=== PATIENT | male | born 1960 | race Caucasian/White ===

== ENCOUNTER 2016-09-02 08:55 | Inpatient (IN) | payer BC, OTHER ==
[~2016-09-02] VITALS: Ht 180.3 cm; Wt 119.4 kg
[~2016-09-02 08:55] MED LIST: ADVIL200 MG PO; ALEVE220 M2 PO; ALEVE220 MG PO; ANTI-DIARRHEA2 MG PO; ASPERDRINK81 MG PO; CLEOCIN300 MG PO; COLO-40 MC; COMPAZINE10 MG PO; DOXYCYCLINE HY100 MG PO; FENTANYL1 EAC5 TD; FOLIC ACID1 MG PO; HYDROCODON-ACE1 EAC7 PO; IMODIUM MS REL1 EACH PO; IMURAN50 MG PO; INDOCIN50 MG PO; MEDROL DOSEPAK4 MG PO; MULTIVITAMIN1 EAC2 PO; NOHOMEMEDS; NORCO 5/3251 TABLET PO; PERCOCET 5/31 TABLET PO; PREDNISONE20 MG PO; PREDNISONE5 MG PO; TYLENOL EXTRA500 MG PO; VITAMIN B122500 MCG PO; ZANTAC150 MG PO; ZANTAC75 M1 PO; ZOFRAN8 MG PO
[2016-09-02 15:34] VITALS: BP 171/106
[2016-09-02] MEDS ORDERED: SILVADENE20 GM TP (17:46)
[2016-09-02 18:26] LABS: HEMATOCRIT 26.7 % (38.0-50.0); MCH 31.6 PG (29.0-34.0); MCHC 35.6 G/DL (30.0-36.0); MCV 88.7 FL (86-99); RBC DIS.WIDTH-CV 14.5 % (11.8-14.6); RBC DIS.WIDTH-SD 45.2 % (39-53); RED BLOOD COUNT 3.01 M/uL (4.00-5.50); WHITE BLOOD COUNT 2.3 K/uL (4.1-10.2)
[2016-09-02 19:00] LABS: ABS NEUTROPHIL COUNT 1.97; PLAT.SUFFICIENCY ADEQUATE; PLATELET COUNT 189 K/uL (156-360)
[2016-09-02 19:01] LABS: DELETE MACHINE DIFF? YES
[2016-09-02 20:37] LABS: ALKALINE PHOSPHATASE 60 IU/L (3-129); ANION GAP 19 MEQ/L (2-14); CHLORIDE 92 MEQ/L (99-109); GFR ESTIMATE (CALCULATED) > 59 mL/min/; GLUCOSE 75 mg/dL (70-99); POTASSIUM 2.8 MEQ/L (3.7-5.4); SAMPLE HEMOLYSIS CHECK 0; SAMPLE ICTERIC CHECK 0; SAMPLE LIPEMIA CHECK 0; SODIUM 138 MEQ/L (136-147); TOTAL BILIRUBIN 0.4 MG/DL (0.0-1.0); UREA NITROGEN (BUN) 17 mg/dL (9-23)
[2016-09-02 23:40] VITALS: BP 158/76
[2016-09-03 07:08] LABS: HEMATOCRIT 25.9 % (38.0-50.0); MCHC 34.7 G/DL (30.0-36.0); MCV 89.3 FL (86-99); MEAN PLAT.VOLUME 9.8 uM^3 (9.0-12.4); PLATELET COUNT 184 K/uL (156-360); RBC DIS.WIDTH-CV 14.6 % (11.8-14.6); RBC DIS.WIDTH-SD 46.1 % (39-53); WHITE BLOOD COUNT 2.1 K/uL (4.1-10.2)
[2016-09-03 07:43] LABS: ALKALINE PHOSPHATASE 60 IU/L (3-129); ANION GAP 16 MEQ/L (2-14); CHLORIDE 95 MEQ/L (99-109); GFR ESTIMATE (CALCULATED) > 59 mL/min/; GLUCOSE 79 mg/dL (70-99); POTASSIUM 2.9 MEQ/L (3.7-5.4); SAMPLE HEMOLYSIS CHECK 0; SAMPLE ICTERIC CHECK 0; SAMPLE LIPEMIA CHECK 0; SODIUM 138 MEQ/L (136-147); TOTAL BILIRUBIN 0.4 MG/DL (0.0-1.0); UREA NITROGEN (BUN) 16 mg/dL (9-23)
[2016-09-03 09:00] VITALS: BP 170/96
[2016-09-03 09:01] VITALS: BP 156/74
[2016-09-03 17:28] VITALS: BP 155/93
[2016-09-03 19:48] VITALS: BP 156/82
[2016-09-03 23:21] VITALS: BP 151/76
[2016-09-04 03:51] VITALS: BP 156/80
[2016-09-04 07:25] LABS: HEMATOCRIT 25.7 % (38.0-50.0); MCH 31.8 PG (29.0-34.0); MCHC 35.8 G/DL (30.0-36.0); MCV 88.9 FL (86-99); MEAN PLAT.VOLUME 10.1 uM^3 (9.0-12.4); PLATELET COUNT 198 K/uL (156-360); RBC DIS.WIDTH-CV 14.6 % (11.8-14.6); RED BLOOD COUNT 2.89 M/uL (4.00-5.50)
[2016-09-04 07:27] LABS: WHITE BLOOD COUNT 1.9 K/uL (4.1-10.2)
[2016-09-04 07:31] LABS: ANION GAP 13 MEQ/L (2-14); CHLORIDE 93 MEQ/L (99-109); GFR ESTIMATE (CALCULATED) > 59 mL/min/; GLUCOSE 87 mg/dL (70-99); POTASSIUM 2.9 MEQ/L (3.7-5.4); SAMPLE HEMOLYSIS CHECK 0; SAMPLE ICTERIC CHECK 0; SAMPLE LIPEMIA CHECK 0; SODIUM 136 MEQ/L (136-147); UREA NITROGEN (BUN) 12 mg/dL (9-23)
[2016-09-04 08:16] VITALS: BP 145/80
[2016-09-04 08:51] LABS: HEMATOCRIT 26.6 % (38.0-50.0); MCV 88.7 FL (86-99); MEAN PLAT.VOLUME 9.9 uM^3 (9.0-12.4); PLATELET COUNT 181 K/uL (156-360); RBC DIS.WIDTH-CV 14.6 % (11.8-14.6); RBC DIS.WIDTH-SD 45.8 % (39-53)
[2016-09-04 08:58] LABS: EOSINOPHIL (%) 0.5 % (0-5); IMMATURE GRANULOCYTE (%) 0.5 % (0.0-0.7); LYMPHOCYTE COUNT 0.1 K/uL (1.0-2.8); MONOCYTE (%) 17.2 % (3-12); MONOCYTE COUNT 0.3 K/uL (0-0.8); NEUTROPHIL (%) 76.1 % (45-76); NEUTROPHIL COUNT 1.5 K/uL (1.8-6.4)
[2016-09-04 09:00] LABS: WHITE BLOOD COUNT 1.9 K/uL (4.1-10.2)
[2016-09-04 15:07] VITALS: BP 136/105
[2016-09-04 19:22] VITALS: BP 153/82
[2016-09-04 23:16] VITALS: BP 147/71
[2016-09-05 02:29] VITALS: BP 155/98
[2016-09-05 07:22] LABS: ANION GAP 12 MEQ/L (2-14); CHLORIDE 95 MEQ/L (99-109); GFR ESTIMATE (CALCULATED) > 59 mL/min/; GLUCOSE 101 mg/dL (70-99); SAMPLE HEMOLYSIS CHECK 0; SAMPLE ICTERIC CHECK 0; SAMPLE LIPEMIA CHECK 0; SODIUM 137 MEQ/L (136-147); UREA NITROGEN (BUN) 9 mg/dL (9-23)
[2016-09-05 08:22] LABS: EOSINOPHIL (%) 1.7 % (0-5); IMMATURE GRANULOCYTE (%) 1.2 % (0.0-0.7); LYMPHOCYTE COUNT 0.3 K/uL (1.0-2.8); MCH 31.5 PG (29.0-34.0); MCHC 35.4 G/DL (30.0-36.0); MEAN PLAT.VOLUME 10.1 uM^3 (9.0-12.4); MONOCYTE (%) 5.8 % (3-12); MONOCYTE COUNT 0.1 K/uL (0-0.8); NEUTROPHIL (%) 73.4 % (45-76); NEUTROPHIL COUNT 1.3 K/uL (1.8-6.4); PLATELET COUNT 205 K/uL (156-360); RBC DIS.WIDTH-CV 14.7 % (11.8-14.6); RBC DIS.WIDTH-SD 46.8 % (39-53); RED BLOOD COUNT 2.92 M/uL (4.00-5.50)
[2016-09-05 08:24] LABS: WHITE BLOOD COUNT 1.7 K/uL (4.1-10.2)
[2016-09-05 08:30] LABS: MAGNESIUM 1.1 mg/dl (1.3-2.7)
[2016-09-05 08:35] VITALS: BP 146/75
[2016-09-05 15:12] VITALS: BP 146/81
[2016-09-05 19:22] VITALS: BP 142/77
[2016-09-05 22:58] VITALS: BP 142/73
[2016-09-06 03:11] VITALS: BP 138/79
[2016-09-06 06:03] LABS: ANION GAP 12 MEQ/L (2-14); CHLORIDE 97 MEQ/L (99-109); GFR ESTIMATE (CALCULATED) > 59 mL/min/; GLUCOSE 118 mg/dL (70-99); POTASSIUM 3.4 MEQ/L (3.7-5.4); SAMPLE HEMOLYSIS CHECK 0; SAMPLE ICTERIC CHECK 0; SAMPLE LIPEMIA CHECK 0; SODIUM 137 MEQ/L (136-147); UREA NITROGEN (BUN) 8 mg/dL (9-23)
[2016-09-06 07:34] LABS: EOSINOPHIL (%) 1.6 % (0-5); HEMATOCRIT 30.3 % (38.0-50.0); IMMATURE GRANULOCYTE (%) 1.6 % (0.0-0.7); LYMPHOCYTE COUNT 0.2 K/uL (1.0-2.8); MCH 31.5 PG (29.0-34.0); MCHC 34.7 G/DL (30.0-36.0); MONOCYTE (%) 8.8 % (3-12); MONOCYTE COUNT 0.2 K/uL (0-0.8); NEUTROPHIL (%) 75.1 % (45-76); NEUTROPHIL COUNT 1.5 K/uL (1.8-6.4); RBC DIS.WIDTH-SD 49.2 % (39-53); RED BLOOD COUNT 3.33 M/uL (4.00-5.50)
[2016-09-06 07:40] LABS: WHITE BLOOD COUNT 1.9 K/uL (4.1-10.2)
[2016-09-06 08:23] LABS: MEAN PLAT.VOLUME 11.1 uM^3 (9.0-12.4); PLAT.SUFFICIENCY ADEQUATE; PLATELET COUNT 172 K/uL (156-360); USER ID CL
[2016-09-06 08:55] VITALS: BP 170/107
[2016-09-06 09:01] VITALS: BP 123/76
[2016-09-06 16:14] VITALS: BP 136/88
[2016-09-06 19:20] LABS: TROP-I INTERPRETATION NEGATIVE; TROPONIN-I 0.03 ng/mL (0.0-0.30)
[2016-09-06 20:05] VITALS: BP 129/80
[2016-09-06 20:15] VITALS: BP 129/80
[2016-09-07 00:55] VITALS: BP 119/63
[2016-09-07 01:14] LABS: TROP-I INTERPRETATION NEGATIVE; TROPONIN-I 0.03 ng/mL (0.0-0.30)
[2016-09-07 04:16] VITALS: BP 132/68
[2016-09-07 07:15] VITALS: BP 120/76
[2016-09-07 07:34] LABS: HEMATOCRIT 29.8 % (38.0-50.0); MCH 31.3 PG (29.0-34.0); MCHC 34.6 G/DL (30.0-36.0); MCV 90.6 FL (86-99); MEAN PLAT.VOLUME 10.4 uM^3 (9.0-12.4); PLATELET COUNT 194 K/uL (156-360); RBC DIS.WIDTH-CV 15.5 % (11.8-14.6); RBC DIS.WIDTH-SD 50.1 % (39-53); RED BLOOD COUNT 3.29 M/uL (4.00-5.50)
[2016-09-07 07:35] LABS: DELETE MACHINE DIFF? YES; WHITE BLOOD COUNT 2.8 K/uL (4.1-10.2)
[2016-09-07 07:42] LABS: ANION GAP 14 MEQ/L (2-14); CHLORIDE 90 MEQ/L (99-109); GFR ESTIMATE (CALCULATED) > 59 mL/min/; GLUCOSE 104 mg/dL (70-99); POTASSIUM 3.1 MEQ/L (3.7-5.4); SAMPLE HEMOLYSIS CHECK 0; SAMPLE ICTERIC CHECK 0; SAMPLE LIPEMIA CHECK 0; SODIUM 136 MEQ/L (136-147); UREA NITROGEN (BUN) 13 mg/dL (9-23)
[2016-09-07 08:56] LABS: ANISOCYTOSIS 2+; EOSINOPHIL ABS CT 0.03; PLAT.SUFFICIENCY ADEQUATE; USER ID LYM
[2016-09-07 10:22] LABS: ADD MIUA? NO; BILIRUBIN NEGATIVE; BLOOD NEGATIVE; COLOR YELLOW ((YELLOW)); GLUCOSE (STRIP) NEGATIVE; KETONES NEGATIVE; LEUKOCYTES NEGATIVE; NITRITE NEGATIVE; PH, URINE 5.5 (5-8); PROTEIN (STRIP) TRACE; UCUL ADDED? NO; UROBILINOGEN 0.2 MG/DL (0.2-1.0)
[2016-09-07 10:38] LABS: SPECIFIC GRAVITY 1.056 (1.000-1.030)
[2016-09-07 11:30] VITALS: BP 132/74
[2016-09-07 15:30] VITALS: BP 112/72
[2016-09-07 20:23] VITALS: BP 128/68
[2016-09-07 20:46] LABS: MAGNESIUM 1.2 mg/dl (1.3-2.7); POTASSIUM 3.3 MEQ/L (3.7-5.4)
[2016-09-07 20:56] LABS: ALKALINE PHOSPHATASE 56 IU/L (3-129); ANION GAP 13 MEQ/L (2-14); CHLORIDE 92 MEQ/L (99-109); GFR ESTIMATE (CALCULATED) > 59 mL/min/; GLUCOSE 102 mg/dL (70-99); POTASSIUM 3.1 MEQ/L (3.7-5.4); SAMPLE HEMOLYSIS CHECK 0; SAMPLE ICTERIC CHECK 0; SAMPLE LIPEMIA CHECK 0; SODIUM 134 MEQ/L (136-147); UREA NITROGEN (BUN) 16 mg/dL (9-23)
[2016-09-07 20:57] LABS: TOTAL BILIRUBIN 0.5 MG/DL (0.0-1.0)
[2016-09-08 00:44] VITALS: BP 116/72
[2016-09-08 07:20] LABS: HEMATOCRIT 29.1 % (38.0-50.0); MCHC 35.1 G/DL (30.0-36.0); MCV 91.2 FL (86-99); MEAN PLAT.VOLUME 10.6 uM^3 (9.0-12.4); PLATELET COUNT 183 K/uL (156-360); RBC DIS.WIDTH-CV 15.6 % (11.8-14.6); RBC DIS.WIDTH-SD 51.3 % (39-53); RED BLOOD COUNT 3.19 M/uL (4.00-5.50)
[2016-09-08 07:21] LABS: WHITE BLOOD COUNT 1.8 K/uL (4.1-10.2)
[2016-09-08 07:24] LABS: ALKALINE PHOSPHATASE 57 IU/L (3-129); ANION GAP 13 MEQ/L (2-14); CHLORIDE 93 MEQ/L (99-109); GFR ESTIMATE (CALCULATED) > 59 mL/min/; GLUCOSE 112 mg/dL (70-99); MAGNESIUM 1.3 mg/dl (1.3-2.7); SAMPLE HEMOLYSIS CHECK 0; SAMPLE ICTERIC CHECK 0; SAMPLE LIPEMIA CHECK 0; SODIUM 135 MEQ/L (136-147); TOTAL BILIRUBIN 0.6 MG/DL (0.0-1.0); UREA NITROGEN (BUN) 18 mg/dL (9-23)
[2016-09-08 07:26] LABS: POTASSIUM 4.3 MEQ/L (3.7-5.4)
[2016-09-08 08:00] VITALS: BP 122/84
[2016-09-08 11:00] VITALS: BP 97/57
[2016-09-08 13:04] LABS: C DIFF TOXIN NEGATIVE (NEGATIVE)
[2016-09-08 13:08] LABS: PROBE CHECK PASS; SPECIMEN PROCESSING CONTROL PASS
[2016-09-08 15:21] LABS: HEMATOLOGY COMMENT 1 SMEAR COMPATIBLE; USER ID NJV
[2016-09-08 15:22] LABS: EOSINOPHIL (%) 2.2 % (0-5); HEMATOCRIT 27.9 % (38.0-50.0); IMMATURE GRANULOCYTE (%) 2.2 % (0.0-0.7); LYMPHOCYTE COUNT 0.2 K/uL (1.0-2.8); MCH 31.3 PG (29.0-34.0); MCHC 34.4 G/DL (30.0-36.0); MCV 91.1 FL (86-99); MEAN PLAT.VOLUME 10.5 uM^3 (9.0-12.4); MONOCYTE (%) 30.1 % (3-12); MONOCYTE COUNT 0.6 K/uL (0-0.8); NEUTROPHIL (%) 53.6 % (45-76); PLATELET COUNT 186 K/uL (156-360); RBC DIS.WIDTH-CV 15.5 % (11.8-14.6); RBC DIS.WIDTH-SD 50.8 % (39-53); RED BLOOD COUNT 3.07 M/uL (4.00-5.50)
[2016-09-08 15:23] LABS: WHITE BLOOD COUNT 1.9 K/uL (4.1-10.2)
[2016-09-08 15:30] VITALS: BP 111/71
[2016-09-08 19:18] VITALS: BP 130/86
[2016-09-08 22:00] LABS: POTASSIUM 3.6 MEQ/L (3.7-5.4)
[2016-09-08 22:01] LABS: MAGNESIUM 1.8 mg/dl (1.3-2.7)
[2016-09-08 23:50] VITALS: BP 103/66
[2016-09-09 04:50] VITALS: BP 139/87
[2016-09-09 07:28] LABS: ALKALINE PHOSPHATASE 52 IU/L (3-129); ANION GAP 10 MEQ/L (2-14); CHLORIDE 95 MEQ/L (99-109); GFR ESTIMATE (CALCULATED) > 59 mL/min/; GLUCOSE 103 mg/dL (70-99); MAGNESIUM 1.9 mg/dl (1.3-2.7); POTASSIUM 3.7 MEQ/L (3.7-5.4); SAMPLE HEMOLYSIS CHECK 0; SAMPLE ICTERIC CHECK 0; SAMPLE LIPEMIA CHECK 0; SODIUM 136 MEQ/L (136-147); UREA NITROGEN (BUN) 19 mg/dL (9-23)
[2016-09-09 07:30] LABS: TOTAL BILIRUBIN 0.4 MG/DL (0.0-1.0)
[2016-09-09 07:36] LABS: EOSINOPHIL (%) 2.5 % (0-5); HEMATOCRIT 26.8 % (38.0-50.0); IMMATURE GRANULOCYTE (%) 1.9 % (0.0-0.7); LYMPHOCYTE COUNT 0.2 K/uL (1.0-2.8); MCH 31.7 PG (29.0-34.0); MCHC 34.7 G/DL (30.0-36.0); MCV 91.5 FL (86-99); MEAN PLAT.VOLUME 10.6 uM^3 (9.0-12.4); MONOCYTE (%) 17.3 % (3-12); MONOCYTE COUNT 0.3 K/uL (0-0.8); NEUTROPHIL (%) 68.4 % (45-76); NEUTROPHIL COUNT 1.1 K/uL (1.8-6.4); PLATELET COUNT 184 K/uL (156-360); RBC DIS.WIDTH-CV 15.7 % (11.8-14.6); RBC DIS.WIDTH-SD 52.3 % (39-53); RED BLOOD COUNT 2.93 M/uL (4.00-5.50)
[2016-09-09 07:37] LABS: WHITE BLOOD COUNT 1.6 K/uL (4.1-10.2)
[2016-09-09 08:32] VITALS: BP 127/89
[2016-09-09 15:20] VITALS: BP 120/70
[2016-09-09 18:26] VITALS: BP 133/84
[2016-09-09 22:41] VITALS: BP 134/78
[2016-09-10 07:31] LABS: ALKALINE PHOSPHATASE 63 IU/L (3-129); ANION GAP 12 MEQ/L (2-14); CHLORIDE 96 MEQ/L (99-109); GFR ESTIMATE (CALCULATED) > 59 mL/min/; GLUCOSE 99 mg/dL (70-99); MAGNESIUM 1.7 mg/dl (1.3-2.7); SAMPLE HEMOLYSIS CHECK 0; SAMPLE ICTERIC CHECK 0; SAMPLE LIPEMIA CHECK 0; SODIUM 137 MEQ/L (136-147); TOTAL BILIRUBIN 0.4 MG/DL (0.0-1.0); UREA NITROGEN (BUN) 14 mg/dL (9-23)
[2016-09-10 07:57] LABS: HEMATOCRIT 26.6 % (38.0-50.0); MCH 31.7 PG (29.0-34.0); MCHC 34.6 G/DL (30.0-36.0); MCV 91.7 FL (86-99); MEAN PLAT.VOLUME 11.1 uM^3 (9.0-12.4); PLATELET COUNT 197 K/uL (156-360); RBC DIS.WIDTH-CV 15.7 % (11.8-14.6); RBC DIS.WIDTH-SD 51.8 % (39-53)
[2016-09-10 07:58] LABS: WHITE BLOOD COUNT 1.7 K/uL (4.1-10.2)
[2016-09-10 07:59] LABS: DELETE MACHINE DIFF? YES
[2016-09-10 08:03] VITALS: BP 136/80
[2016-09-10 09:07] LABS: ABS NEUTROPHIL COUNT 1.21; ANISOCYTOSIS 1+; MACROCYTES OCC; OVALOCYTES 1+; PLAT.SUFFICIENCY ADEQUATE; POLYCHROMASIA RARE; USER ID STC
[2016-09-10] MEDS ORDERED: LOPRESSOR25 MG GT (10:53)
[2016-09-10] MEDS ORDERED: MAG-OXIDE400 MG GT (10:54)
[2016-09-10] MEDS ORDERED: FAMOTIDINE40 MG PO (10:55)
[2016-09-10] MEDS ORDERED: ERGOCALCIF50000 UNIT PO (10:55)
[2016-09-10] MEDS ORDERED: LO-DOSE ASPIRIN81 M2 PO (10:57)
== END 2016-09-10 15:10 | disposition home health service (06) | DRG 392 ==
LOC: 5EAST 08:55 → 4EAST 15:04 → 5EAST 15:04 → 4EAST 09-06 19:30 → 5EAST 09-09 18:04
PROVIDERS: Hospitalist; Internal Medicine; Internal Medicine Hematology & Oncology; Internal Medicine Infectious Disease; Internal Medicine Medical Oncology; Internal Medicine Nephrology; Student in an Organized Health Care Education/Training Program
DX: R11.2 Nausea with vomiting, unspecified (principal); C77.0 Secondary and unspecified malignant neoplasm of lymph nodes of head, face and neck; N17.9 Acute kidney failure, unspecified; E87.6 Hypokalemia; E86.0 Dehydration; Z66 Do not resuscitate; C76.0 Malignant neoplasm of head, face and neck; E83.51 Hypocalcemia; E83.42 Hypomagnesemia; K80.20 Calculus of gallbladder without cholecystitis without obstruction; R53.81 Other malaise; R13.12 Dysphagia, oropharyngeal phase; K43.5 Parastomal hernia without obstruction or gangrene; D70.1 Agranulocytosis secondary to cancer chemotherapy; T17.290A Other foreign object in pharynx causing asphyxiation, initial encounter; K12.30 Oral mucositis (ulcerative), unspecified; R00.0 Tachycardia, unspecified; E66.9 Obesity, unspecified; Z68.38 Body mass index [BMI] 38.0-38.9, adult; Z93.3 Colostomy status; Z93.1 Gastrostomy status; Z90.49 Acquired absence of other specified parts of digestive tract; Z87.891 Personal history of nicotine dependence; Z82.49 Family history of ischemic heart disease and other diseases of the circulatory system; Z80.0 Family history of malignant neoplasm of digestive organs; Y92.9 Unspecified place or not applicable
CPT/HCPCS: 71010; 71275; 74177; 74230; 76705; 76770; 78227; 80048; 80053; 81003; 82306; 82330; 82436; 82570; 83735; 83880; 83930; 83935; 84100; 84132 91; 84133; 84156; 84300; 84484; 85025; 85027; 87040; 87493; 92526 GN; 92610 GN; 92611 GN; 93005; 94799; 96361; 96374; 96375; A9537; J1644; J1650; J1940; J2060; J2405; J2543; J2805; J3475; J3480; J7030; J7040; J7050

== ENCOUNTER 2016-09-21 14:43 | Inpatient (IN) | payer BC, OTHER ==
[~2016-09-21] VITALS: Ht 180.3 cm; Wt 105.0 kg
[~2016-09-21 14:43] MED LIST changes: +ERGOCALCIF50000 UNIT PO; +FAMOTIDINE40 MG PO; +LO-DOSE ASPIRIN81 M2 PO; +LOPRESSOR25 MG GT; +MAG-OXIDE400 MG GT; +SILVADENE20 GM TP; +ZOFRAN8 MG GT; -ZOFRAN8 MG PO
[2016-09-21 17:40] LABS: EOSINOPHIL (%) 2.2 % (0-5); EOSINOPHIL COUNT 0.1 K/uL (0-0.3); HEMATOCRIT 30.3 % (38.0-50.0); IMMATURE GRANULOCYTE (%) 1.8 % (0.0-0.7); IMMATURE GRANULOCYTE COUNT 0.9 K/uL; LYMPHOCYTE COUNT 0.3 K/uL (1.0-2.8); MCH 32.4 PG (29.0-34.0); MCHC 34.7 G/DL (30.0-36.0); MCV 93.5 FL (86-99); MEAN PLAT.VOLUME 10.4 uM^3 (9.0-12.4); MONOCYTE (%) 15.1 % (3-12); MONOCYTE COUNT 0.8 K/uL (0-0.8); NEUTROPHIL (%) 74.4 % (45-76); NEUTROPHIL COUNT 3.8 K/uL (1.8-6.4); RBC DIS.WIDTH-CV 16.7 % (11.8-14.6); RBC DIS.WIDTH-SD 54.4 % (39-53); RED BLOOD COUNT 3.24 M/uL (4.00-5.50)
[2016-09-21 17:41] LABS: CHLORIDE 98 mEq/L (99-109); POTASSIUM 4.4 mEq/L (3.7-5.4); SODIUM 136 mEq/L (136-147)
[2016-09-21 17:43] LABS: GLUCOSE 100 mg/dL (70-99); PLATELET COUNT 276 K/uL (156-360); WHITE BLOOD COUNT 5.1 K/uL (4.1-10.2)
[2016-09-21 17:44] LABS: ANION GAP 11 MEQ/L (2-14)
[2016-09-21 17:45] LABS: TOTAL BILIRUBIN 0.6 mg/dL (0.0-1.0)
[2016-09-21 17:47] LABS: ALKALINE PHOSPHATASE 110 IU/L (3-129); GFR ESTIMATE (CALCULATED) 44 mL/min/
[2016-09-21 17:48] LABS: UREA NITROGEN (BUN) 31 mg/dL (9-23)
[2016-09-21 17:50] LABS: LIPASE 24 U/L (1.0-51.0)
[2016-09-21 17:52] LABS: TROP-I INTERPRETATION NEGATIVE; TROPONIN-I < 0.01 ng/mL (0.0-0.30)
[2016-09-21] MEDS ORDERED: FAMOTIDINE40 MG GT (20:55)
[2016-09-21] MEDS ORDERED: LO-DOSE ASPIRIN81 M1 GT (20:56)
[2016-09-21] MEDS ORDERED: ERGOCALCIF50000 UNIT GT (20:57)
[2016-09-22 00:10] VITALS: BP 144/90
[2016-09-22 04:46] VITALS: BP 106/55
[2016-09-22 07:52] VITALS: BP 109/73
[2016-09-22 08:52] LABS: ALKALINE PHOSPHATASE 100 IU/L (3-129); ANION GAP 10 MEQ/L (2-14); CHLORIDE 100 MEQ/L (99-109); GFR ESTIMATE (CALCULATED) 47 mL/min/; GLUCOSE 89 mg/dL (70-99); POTASSIUM 4.2 MEQ/L (3.7-5.4); SAMPLE HEMOLYSIS CHECK 0; SAMPLE ICTERIC CHECK 0; SAMPLE LIPEMIA CHECK 0; SODIUM 137 MEQ/L (136-147); TOTAL BILIRUBIN 0.6 MG/DL (0.0-1.0); UREA NITROGEN (BUN) 31 mg/dL (9-23)
[2016-09-22 08:54] LABS: MCH 31.9 PG (29.0-34.0); MCHC 33.7 G/DL (30.0-36.0); MCV 94.7 FL (86-99); MEAN PLAT.VOLUME 10.9 uM^3 (9.0-12.4); PLATELET COUNT 242 K/uL (156-360); RBC DIS.WIDTH-CV 17.1 % (11.8-14.6); RED BLOOD COUNT 2.85 M/uL (4.00-5.50)
[2016-09-22 08:55] LABS: WHITE BLOOD COUNT 2.8 K/uL (4.1-10.2)
[2016-09-22 16:58] VITALS: BP 125/55
[2016-09-22 19:33] VITALS: BP 128/65
[2016-09-22 23:17] VITALS: BP 122/76
[2016-09-23 07:24] VITALS: BP 106/63
[2016-09-23 10:57] LABS: ANION GAP 11 MEQ/L (2-14); CHLORIDE 100 MEQ/L (99-109); GFR ESTIMATE (CALCULATED) > 59 mL/min/; POTASSIUM 3.7 MEQ/L (3.7-5.4); SAMPLE HEMOLYSIS CHECK 0; SAMPLE ICTERIC CHECK 0; SAMPLE LIPEMIA CHECK 0; SODIUM 137 MEQ/L (136-147); UREA NITROGEN (BUN) 26 mg/dL (9-23)
[2016-09-23 11:45] LABS: GLUCOSE 137 mg/dL (70-99)
[2016-09-23] MEDS ORDERED: ZOFRAN ODT8 MG PO (12:10)
[2016-09-23 15:54] VITALS: BP 133/82
[2016-09-23 23:08] VITALS: BP 130/78
[2016-09-24 07:42] VITALS: BP 136/52
== END 2016-09-24 16:10 | disposition home health service (06) | DRG 683 ==
LOC: EME 14:43 → EDOF 22:47 → 3EAST 22:47
PROVIDERS: Emergency Medicine; Internal Medicine
DX: N17.9 Acute kidney failure, unspecified (principal); C77.9 Secondary and unspecified malignant neoplasm of lymph node, unspecified; Z93.1 Gastrostomy status; C73 Malignant neoplasm of thyroid gland; R13.10 Dysphagia, unspecified; E83.42 Hypomagnesemia; I12.9 Hypertensive chronic kidney disease with stage 1 through stage 4 chronic kidney disease, or unspecified chronic kidney disease; N18.3 Chronic kidney disease, stage 3 (moderate); E66.9 Obesity, unspecified; Z68.33 Body mass index [BMI] 33.0-33.9, adult; G89.29 Other chronic pain; Z66 Do not resuscitate; K21.9 Gastro-esophageal reflux disease without esophagitis; Z92.21 Personal history of antineoplastic chemotherapy; Z92.3 Personal history of irradiation; C76.0 Malignant neoplasm of head, face and neck; Z93.3 Colostomy status; R11.2 Nausea with vomiting, unspecified; Z87.891 Personal history of nicotine dependence; K90.49 Malabsorption due to intolerance, not elsewhere classified
CPT/HCPCS: 71020; 80048; 80053; 81003; 83690; 83735; 84484; 85025; 85027; 92610 GN; 93005; 99281; 99285; J1644; J2405; J3475; J7030